=== PATIENT | male | born 1990 | race Caucasian/White ===

== ENCOUNTER 2018-12-23 16:05 | Emergency (ER) | payer MEDICAID, SELFPAY ==
[2018-12-23] VITALS (9 sets, daily range): BP systolic 114–117; BP diastolic 67–76; PULSE 80–85; RESP 14–18; TEMP 36.3–36.7; O2SAT 97–99; BMI 23.7
--- NOTE | 2018-12-23 16:27 | ED.VIS.GEN ---
History of Present Illness Chief Complaint: Substance Abuse Detail of Chief Complaint: Patient presents from [facility] detox [place] outpatient offices Informant: Patient, - - [facility] detox staff, the patient presented to the outpatient facility asking for detox from heroin, methamphetamine abuse, he was then brought to the emergency department to undergo that assessment and when he presented to the triage desk in the emergency department he complained of being suicidal and homicidal nonspecific individuals, now the [facility] team feels ended go a mental health assessment prior to detox assessment, the patient is quite upset that he was sent to the emergency department it was his understanding he was going right up to the floor I explained to him that now that he is verbalized to ED triage that he was suicidal homicidal he must undergo treatment for that condition which differs from his detox protocol, he is unwilling to get undressed he is unwilling to have anyone take his vital signs he simply now wants to leave and I explained to him that is not within the protocol he must be seen by mental health services for his verbalized suicidal homicidal ideation Onset: Weeks Timing: - - He last used heroin last night he may have used fentanyl today it is unclear when he last used methamphetamine he denies other drug use Current Severity: Mild Narrative: See all of the above he is currently refusing to cooperate explained to him he must follow the established protocols to help manage all of his conditions including the heroin/opioid withdrawal, the suicidal homicidal ideation Past Medical History - Allergies and Home Meds Allergies/Adverse Reactions: Allergies Penicillins Allergy (Verified 12/23/18 16:11) Anaphylaxis Past Medical History: - - Denies any significant past history and again he is a reluctant historian Review of Systems General: Reports: Chills, Sweats. Denies: Fever Eyes: Denies: Visual changes - bilaterally, Diplopia ENT: Denies: Rhinorrhea, Sore throat Cardiovascular: Denies: Chest pain, Palpitations Respiratory: Denies: Dyspnea, Cough, Dyspnea on exertion Gastrointestinal: Denies: Abdominal pain, Nausea, Vomiting, Diarrhea, Melena, Hematochezia Genitourinary: Reports: Hematuria, Frequency. Denies: Dysuria Musculoskeletal: Reports: Arthralgias. Denies: Back pain, Extremity Pain Skin: Denies: Rash, Wounds Neurological: Reports: Headache, Weakness, Numbness Physical Exam Vital Signs/Narrative: Vital Signs Temp Pulse Resp BP Pulse Ox 12/23/18 16:06 98.1 F 85 16 114/67 97 General: - - He is refusing to be examined, he is awake and alert looking about the room moving all 4 extremities his HEENT exam is grossly to inspection unremarkable there is no respiratory distress he seems to have no pain anywhere, he walked into the emergency department walked into his room Diagnostic/Tx/Re-eval - Medical Decision Making He remains awake and alert he is eating a sandwich in no distress moving all 4 extremities, mental health services had seen him and recommend admission to [facility] for further management of all the above we explained that to him his CBC chemistry labs are unremarkable his tox screen came back positive CL those reports he remains awake and alert hemodynamically stable neurologically normal Final impression 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
--- NOTE | 2018-12-23 16:31 | ED.DCSUM_ITS ---
History of Present Illness Chief Complaint: Substance Abuse Detail of Chief Complaint: Patient presents from [facility] detox [place] outpatient offices Informant: Patient, - - [facility] detox staff, the patient presented to the outpatient facility asking for detox from heroin, methamphetamine abuse, he was then brought to the emergency department to undergo that assessment and when he presented to the triage desk in the emergency department he complained of being suicidal and homicidal nonspecific individuals, now the [facility] team feels ended go a mental health assessment prior to detox assessment, the patient is quite upset that he was sent to the emergency department it was his un derstanding he was going right up to the floor I explained to him that now that he is verbalized to ED triage that he was suicidal homicidal he must undergo treatment for that condition which differs from his detox protocol, he is unwilling to get undressed he is unwilling to have anyone take his vital signs he simply now wants to leave and I explained to him that is not within the protocol he must be seen by mental health services for his verbalized suicidal homicidal ideation Onset: Weeks Timing: - - He last used heroin last night he may have used fentanyl today it is unclear when he last used methamphetamine he denies other drug use Current Severity: Mild Narrative: See all of the above he is currently refusing to cooperate explained to him he must follow the established protocols to help manage all of his conditions including the heroin/opioid withdrawal, the suicidal homicidal ideation Past Medical History - Allergies and Home Meds Allergies/Adverse Reactions: Allergies Penicillins Allergy (Verified 12/23/18 16:11) Anaphylaxis Past Medical History: - - Denies any significant past history and again he is a reluctant historian Review of Systems General: Reports: Chills, Sweats. Denies: Fever Eyes: Denies: Visual changes - bilaterally, Diplopia ENT: Denies: Rhinorrhea, Sore throat Cardiovascular: Denies: Chest pain, Palpitations Respiratory: Denies: Dyspnea, Cough, Dyspnea on exertion Gastrointestinal: Denies: Abdominal pain, Nausea, Vomiting, Diarrhea, Melena, Hematochezia Genitourinary: Reports: Hematuria, Frequency. Denies: Dysuria Musculoskeletal: Reports: Arthralgias. Denies: Back pain, Extremity Pain Skin: Denies: Rash, Wounds Neurological: Reports: Headache, Weakness, Numbness Physical Exam Vital Signs/Narrative: Vital Signs Temp Pulse Resp BP Pulse Ox 12/23/18 16:06 98.1 F 85 16 114/67 97 General: - - He is refusing to be examined, he is awake and alert looking about the room moving all 4 extremities his HEENT exam is grossly to inspection unremarkable there is no respiratory distress he seems to have no pain anywhere, he walked into the emergency department walked into his room Diagnostic/Tx/Re-eval - Medical Decision Making He remains awake and alert he is eating a sandwich in no distress moving all 4 extremities, mental health services had seen him and recommend admission to [facility] for further management of all the above we explained that to him his CBC chemistry labs are unremarkable his tox screen came back positive CL those reports he remains awake and alert hemodynamically stable neurologically normal Final impression 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
[2018-12-23 17:15] LABS: Absolute Lymphocyte Count 2.52 X10^3/ul (0.83-4.51); Absolute Neutrophil Count 5.2 X10^3/uL (2.0-7.7); Basophil# 0.02 X10^3/uL; Basophil% 0.2 % (0-1); Eosinophil# 0.14 X10^3/uL; Eosinophils% 1.6 % (0-5); Hematocrit 43.8 % (40-54); Hemoglobin 15.1 g/dl (13.0-16.5); Lymphocyte # 2.52 X10^3/ul (4.0); Lymphocyte % 29.6 % (19-41); Mean Corp Hgb Conc 34.5 g/gl (32-36); Mean Corpuscular Hgb 29.9 pg (27.0-32.0); Mean Corpuscular Volume 86.7 fL (80-94); Mean Platelet Vol. 9.1 fl (6.2-12.0); Monocyte# 0.61 X10^3/uL; Monocyte% 7.2 % (0-10); Neutrophil # 5.22 X10^3/uL (2.7-7.7); Neutrophil % 61.3 % (47-70); POSITIVE COUNT NO; POSITIVE DIFFERENTIAL NO; POSITIVE MORPHOLOGY NO; Platelet Count 290 K/mm3 (150-450); RBC Distribution Width CV 13.6 % (11.6-14.6); RBC Distribution Width SD 42.8 fl (35.1-43.9); Red Blood Count 5.05 M/mm3 (4.6-6.2); White Blood Count 8.5 K/mm3 (4.4-11.0)
[2018-12-23 17:32] LABS: Anion Gap 7 (5-15); BUN 16 mg/dL (7-18); BUN/Creat Ratio 13.4 RATIO (10-20); Calcium,Total 9.6 mg/dL (8.5-10.1); Chloride 107 mmol/L (98-107); Creatinine, Serum 1.19 mg/dL (0.70-1.30); EST Glomerular Filtration Rate 76 mL/min (>60); Est Glom Filt Rate - Afr Amer 92 mL/min (>60); Estimated Creatinine Clearance 108.49 ml/min; Glucose 93 mg/dL (74-106); Sodium Level 141 mmol/L (136-145)
[2018-12-23 17:35] LABS: Amphetamine Urine VISTA POSITIVE (<1000 ng/mL); Barbiturate Urine VISTA NEGATIVE (< 200 ng/mL); Benzodiazepine Urine VISTA NEGATIVE (< 200 ng/mL); Cocaine Urine VISTA NEGATIVE (< 300 ng/mL); Ecstacy Urine VISTA POSITIVE (< 500 ng/mL); Methadone Urine VISTA NEGATIVE (< 300 ng/mL); PCP Urine VISTA NEGATIVE (< 25 ng/mL); THC Urine VISTA POSITIVE (< 50 ng/mL); Vista UDS pH Range 6
--- NOTE | 2018-12-23 17:54 | NURSING ---
CALLED CRISIS ABOUT PATIENT
--- NOTE | 2018-12-23 18:13 | NURSING ---
CRISIS HERE FOR PATIENT
--- NOTE | 2018-12-23 19:35 | ED.DCSUM_ITS ---
- ER Visit Summary Date of Service: 12/23/18 Chief Complaint: [] Please see the other chart for full details History of Present Illness: The patient is a 28 M [] Physical Examination: [] Test Results: [] Emergency Department Course and Treatment: [] Treatment Plan: [] Disposition: [] Impression: [] This note was generated with [employer] dictation software. It may contain incorrect words, spelling, and punctuation that were not noted in review of the chart prior to signing ED Disposition - Plan for ED Patient: Diagnosis: Drug abuse and dependence, Suicidal ideation Referrals: Care Physician,No Primary [Primary Care Provider] -
[2018-12-23] MEDS: LORazepam 1 MG Tablet PO (19:37)
[2018-12-24] VITALS (11 sets, daily range): BP systolic 99–116; BP diastolic 63–76; PULSE 52–76; RESP 14–18; TEMP 36.5; O2SAT 98–100
--- NOTE | 2018-12-24 00:12 | EKG12_ITS ---
Test Reason : [facility] [place] Pressure : / mmHG Vent. Rate : 055 BPM Atrial Rate : 055 BPM P-R Int : 190 ms QRS Dur : 110 ms QT Int : 456 ms P-R-T Axes : 051 086 066 degrees QTc Int : 436 ms Sinus bradycardia Otherwise normal ECG Confirmed by LUCIO ARTHUR, YOUNG ([id number]), science editor BOBY MAN ([id number]) on 12/28/2018 8:46:03 AM Referred By: LENI Confirmed By:YOUNG VALDES MD
--- NOTE | 2018-12-24 00:15 | ED.RN ---
[facility] called and requested additional information and labs at this time
[2018-12-24 00:32] LABS: Bacteria 0 SEEN /hpf (None Seen); Red Blood Cells-Urine 0 SEEN /hpf (0-5); Squamous Epithelial Cells - UA 0 SEEN /hpf (0-5)
[2018-12-24 00:37] LABS: Color, Urine Yellow (Yellow); Glucose, Dipstick Normal (Normal); Ketone-Dipstick 5 mg/dl (Negative); Leukocyte Esterase-Dipstick 25 /ul (Negative); Nitrite-Dipstick Negative (Negative); Occult Blood-Urine Negative /ul (Negative); Protein-Dipstick Negative (Negative); Urine Bilirubin Dipstick Negative (Negative); Urine Clarity Clear (Clear); Urine Urobilinogen Normal (Normal)
[2018-12-24 00:43] LABS: Mucous, Urine 2+ /hpf (<or=2+); White Blood Cells 0-5 SEEN /hpf (0-5)
[2018-12-24 01:01] LABS: CPK Total, Creatine Kinase 414 U/L (39-308)
[2018-12-24 01:56] LABS: AST(SGOT) 30 U/L (15-37); Alanine Aminotransfer ALT/SGPT 34 U/L (16-61); Albumin, Serum 4.4 g/dL (3.2-5.0); Alkaline Phosphatase 72 U/L (45-117); Bilirubin, Direct 0.14 mg/dL (0.00-0.30); Globulin 3.1 g/dL (2.2-4.2); Protein, Total 7.5 g/dL (6.4-8.2)
--- NOTE | 2018-12-24 06:24 | NURSING ---
ACCEPTED TO [place] [id number] BELL
--- NOTE | 2018-12-24 06:48 | NURSING ---
CALLED [facility] FOR TRANSPORT. ETA IS ABOUT NOON
== END 2018-12-24 10:35 ==
LOC: ED 17:55
PROVIDERS: Emergency Medicine; Emergency Provider Emergency Medicine
DX: R45.851 Suicidal ideations (principal); R45.850 Homicidal ideations; F15.10 Other stimulant abuse, uncomplicated; F11.10 Opioid abuse, uncomplicated
CPT/HCPCS: 80048; 80076; 80307; 80320; 81001; 82550; 85025; 93005; 99285; G0480